=== PATIENT | female | born 1955 | race Caucasian/White ===

== ENCOUNTER 2019-04-24 05:38 | Day surgery (SDC) ==
--- NOTE | 2019-04-18 17:27 | EKG Report ---
Test Performed on : 04/18/2019 5:16:55 PM Test Reason : PAT Blood Pressure : / mmHG Vent. Rate : 104 BPM Atrial Rate : 104 BPM P-R Int : 156 ms QRS Dur : 094 ms QT Int : 338 ms P-R-T Axes : 068 041 061 degrees QTc Int : 444 ms Sinus tachycardia. Otherwise normal ECG No previous ECGs available Confirmed by Fabiola Martin MD ([id number]) on 04/18/2019 6:26:50 PM
[2019-04-18 17:32] LABS: BASO# 0.04 X1000 (0.0-0.2); BASO% 0.5 % (0.0-0.8); EOS% 1.2 % (0.0-10.0); HEMATOCRIT 43.6 % (37.0-47.0); HEMOGLOBIN 13.9 g/dL (12.0-16.0); IMM GRAN# 0.02 X1000 (0.0-0.04); IMM GRAN% 0.2 % (0.0-0.5); LYMPH# 1.98 X1000 (1.2-3.4); LYMPH% 23.2 % (20.5-51.1); MCH 30.3 PG (27-31); MCHC 31.9 g/dL (33-37); MCV 95.2 FL (81-99); MONO# 0.49 X1000 (0.11-0.59); MONO% 5.7 % (1.7-9.3); MPV 11.1 FL (7.4-10.4); NEUT% 69.2 % (42.2-75.2); PLT 215 X1000 (130-400); RBC 4.58 XMIL (4.2-5.4); RDW 13.1 % (11.5-14.5); URINE SOURCE CLEAN CATCH; WBC 8.53 X1000 (4.8-10.8)
[2019-04-18 17:36] LABS: BILIRUBIN URINE NEGATIVE (NEGATIVE); BLOOD URINE NEGATIVE (NEGATIVE); COLOR YELLOW; GLUCOSE URINE NEGATIVE (NEGATIVE); KETONE URINE TRACE mg/dL (NEGATIVE); LEUKOCYTES URINE LARGE (NEGATIVE); NITRITE URINE NEGATIVE (NEGATIVE); PROTEIN URINE NEGATIVE (NEGATIVE); TURBIDITY URINE HAZY (CLEAR); UROBILINOGEN URINE NORMAL (NORMAL)
[2019-04-18 17:38] LABS: UR EPITHELIAL CELLS <10 /HPF (<10); URINE RBC <10 /HPF (<10); URINE WBC TNTC /HPF (<10)
[2019-04-18 17:45] LABS: URINE BACTERIA 3+ /HPF
[2019-04-18 17:46] LABS: INR 0.96; PROTIME 12.9 Seconds (11.0-16.0); PTT 33.3 Seconds (22.3-41.8)
[2019-04-18 18:06] LABS: AGAP 13; ALBUMIN 4.3 g/dL (3.5-5.0); BUN 16 mg/dL (8-22); CALCIUM 10.1 mg/dL (8.8-10.2); CHLORIDE 102 mmol/L (98-107); COSMO 284; CREATININE 0.8 mg/dL (0.5-0.9); ESTIMATED GFR > 60; GLUCOSE 118 mg/dL (70-104); POTASSIUM 3.8 mmol/L (3.5-5.1); SODIUM 141 mmol/L (136-145); TCO2 26 mmol/L (25-35)
[2019-04-18 18:16] LABS: HEMOGLOBIN A1C 5.1 % (4.8-6.0)
[2019-04-24] MEDS ORDERED: REGLAN ONE (06:19)
[2019-04-24] MEDS ORDERED: PEPCID ONE (06:19)
[2019-04-24] MEDS ORDERED: COLACE ONE (06:19)
[2019-04-24] MEDS ORDERED: KEFZOL 1 GM/D5W 2 GM/100 ML IVPB ONE (06:20)
[2019-04-24] MEDS ORDERED: LYRICA ONE (06:20)
[2019-04-24] MEDS ORDERED: LR 1,000 ML ONE (06:20)
[2019-04-24] MEDS ORDERED: CELEBREX ONE (06:20)
[2019-04-24] MEDS ORDERED: DIPRIVAN 1% ONE (07:46)
[2019-04-24] MEDS ORDERED: VANCOMYCIN ONE (08:04)
[2019-04-24] MEDS ORDERED: DURAMORPH ONE (08:04)
[2019-04-24] MEDS ORDERED: TORADOL ONE (08:04)
[2019-04-24] MEDS ORDERED: SENSORCAINE-MPF 0.5%/EPI 1:200,000 ONE (08:04)
[2019-04-24] MEDS ORDERED: SODIUM CHLORIDE 0.9% ONE (08:05)
[2019-04-24] MEDS ORDERED: CYKLOKAPRON 1,000 MG/NS 1,000 MG/100 ML IVPB ONE ×2 (08:05→08:53)
[2019-04-24] MEDS ORDERED: EXPAREL 1.3% ONE (08:05)
[2019-04-24] MEDS ORDERED: NEOSPORIN G.U. IRRIGANT ONE (08:08)
[2019-04-24] MEDS ORDERED: FENTANYL ONE (08:46)
[2019-04-24] MEDS ORDERED: DECADRON ONE (09:18)
[2019-04-24] MEDS ORDERED: OFIRMEV 1000 MG/ISOTONIC SOLN 1,000 MG/100 ML BOTTLE ONE (09:18)
[2019-04-24] MEDS ORDERED: ZOFRAN ONE (09:18)
[2019-04-24 09:42] LABS: URINE SOURCE CATH
[2019-04-24 10:13] LABS: BILIRUBIN URINE NEGATIVE (NEGATIVE); BLOOD URINE NEGATIVE (NEGATIVE); COLOR YELLOW; GLUCOSE URINE NEGATIVE (NEGATIVE); KETONE URINE NEGATIVE (NEGATIVE); LEUKOCYTES URINE NEGATIVE (NEGATIVE); NITRITE URINE NEGATIVE (NEGATIVE); PH URINE 5.5; PROTEIN URINE TRACE mg/dL (NEGATIVE); SP GRAVITY URINE 1.023; TURBIDITY URINE CLEAR (CLEAR); UROBILINOGEN URINE NORMAL (NORMAL)
[2019-04-24 10:15] LABS: UR EPITHELIAL CELLS <10 /HPF (<10); URINE BACTERIA NEGATIVE /HPF; URINE RBC <10 /HPF (<10); URINE WBC <10 /HPF (<10)
[2019-04-24] MEDS ORDERED: NS 1,000 ML ONE (10:53)
[2019-04-24] MEDS ORDERED: MORPHINE IV PRN ×3 (11:15)
[2019-04-24] MEDS ORDERED: ZOFRAN IV PRN (11:15)
[2019-04-24] MEDS ORDERED: ZOFRAN ODT PO PRN (11:15)
[2019-04-24] MEDS ORDERED: OXY IR PO PRN (11:15)
--- NOTE | 2019-04-24 11:18 | Diag Imaging Result Doc PS360 ---
EXAM: KNEE 1-2 VIEWS-LEFT HISTORY: post op TECHNIQUE: Two views COMPARISON: 10/18/2013 FINDINGS: There has been orthopedic replacement of the knee. There are anterior skin ines and a Ashlyn surgical drain. No fracture. No dislocation. IMPRESSION: Good alignment to the femoral and tibial components of the recently replaced left knee. Electronically signed by Spencer Buckley 04/24/2019 11:16 AM
[2019-04-24] MEDS: NS 1,000 ML IV SCH ×2 (11:40→22:14)
[2019-04-24] MEDS: ULTRAM PO SCH ×3 (11:57→22:14)
[2019-04-24] MEDS: OXY IR PO PRN (13:41)
--- NOTE | 2019-04-24 14:09 | OPERATIVE NOTE ---
PROCEDURE DATE: 04/24/2019 PREOPERATIVE DIAGNOSIS: Degenerative joint disease, left knee. POSTOPERATIVE DIAGNOSIS: Degenerative joint disease left knee. PROCEDURE: Left total knee replacement. SURGEON: Rosio Vazquez MD. FLOUR INSPECTOR: Madeline Zazueta. Ms. Zazueta was necessary for proper retraction and manipulation during the case. ANESTHESIA: Spinal. COMPLICATION: None. PROCEDURE IN DETAIL: This 64-year-old female presents for left total knee replacement. Risks, benefits, and no guarantees were discussed and she is willing to proceed. She was taken to the operating room and satisfactory anesthesia obtained. The left knee was prepped and draped in usual sterile fashion. A time-out was taken to confirm operative site, procedure, and patient. The leg was wrapped with an Esmarch after prep and drape. Tourniquet was inflated to 350 mmHg. A midline incision was made followed by a quad tendon sparing arthrotomy. The patella was everted and resurfaced with freehand technique and subluxed laterally. With the knee flexed an intramedullary hole was made in the distal femur and distal femur cutting block secured in 5 degrees of valgus. The distal femoral resection was made at 11 mm to accommodate for flexion contracture. Distal femur was sized to a size 6 DePuy Attune femoral implant. The 4 in 1 block was attached and the posterior, anterior and chamfer cuts sequentially made. A notch was created for posterior stabilized design using provided notch guide. The femur was then reflected posteriorly with the knee flexed to expose the proximal tibia. Tibial cutting block was secured with extramedullary alignment and the tibial resection made. Flexion and extension gaps were equal after release of the popliteus tendon with a 10 mm spacer block. Tibia was sized to a size 6 tibial tray. A trial reduction was performed with a 6 tibial tray, a 10 mm thick poly and a 6 femoral component with good range of motion and stability. The patella was sized to a 35 medialized dome patella. Midline patellar tracking was noted. The drill holes were placed for the femoral and patellar implants, and the trial components removed. The bony surfaces were irrigated with pulsatile lavage with irrigant and then dried. Cement with a gram of vancomycin was utilized to cement a DePuy size 6 rotating platform tibial base plate, a size 6 left posterior stabilized femoral component and a 35 medialized dome patella. Excess cement was removed with a Duvall elevator. While the cement cured, the joint capsule was injected with Exparel and a Hemovac drain placed. After curing the cement, a 10 mm thick size 6 posterior stabilized poly bearing was inserted into the tibial tray and the knee reduced. Final range of motion was 0 to 120 degrees with midline patellar tracking and good soft tissue balance. The arthrotomy was copiously irrigated and closed over the drain with #1 Vicryl in the arthrotomy, 2-0 Vicryl in the subcutaneous and skin ines on the skin edges. Sterile dressings completed the closure and the patient was recovered from anesthesia and transferred to recovery room in stable condition. Tourniquet was released with good return of capillary blood flow. No intraoperative complications were noted. Instrument count and sponge count was correct at the time of closure. cc: Viet Vazquez MD
--- NOTE | 2019-04-24 14:28 | ORTHOPAEDICS PROGRESS NOTE ---
DATE: 04/24/2019 SUBJECTIVE: Ms. Womack is seen status post knee replacement. OBJECTIVE: At the present time, she is afebrile with stable vital signs. Her bandage is clean and dry. She is resting comfortably. PLAN: We will plan on mobilizing her later today. She can be transferred home when she is mobilizing well. cc: Viet Vazquez MD
[2019-04-24] MEDS: KEFZOL 2 GM/D5W 2 GM/50 ML IVPB IV SCH (16:12)
[2019-04-24] MEDS: TYLENOL PO SCH ×2 (16:12→22:14)
[2019-04-24] MEDS: PERIDEX MT SCH (22:14)
[2019-04-24] MEDS: DOXYCYCLINE PO SCH (22:15)
[2019-04-24] MEDS: CELEBREX PO SCH (22:15)
[2019-04-24] MEDS: COLACE PO SCH (22:15)
[2019-04-24] MEDS: APRESOLINE PO SCH (22:15)
[2019-04-25] MEDS: OXY IR PO PRN ×2 (01:09→08:11)
[2019-04-25] MEDS: KEFZOL 2 GM/D5W 2 GM/50 ML IVPB IV SCH (01:09)
[2019-04-25] MEDS: ULTRAM PO SCH ×2 (04:52→10:44)
[2019-04-25] MEDS: TYLENOL PO SCH ×2 (04:53→10:43)
[2019-04-25 06:59] LABS: HEMOGLOBIN 10.3 g/dL (12.0-16.0)
[2019-04-25] MEDS: NS 1,000 ML IV SCH (07:07)
[2019-04-25 08:06] LABS: AGAP 12; BUN 17 mg/dL (8-22); CALCIUM 7.7 mg/dL (8.8-10.2); CHLORIDE 96 mmol/L (98-107); COSMO 270; CREATININE 0.7 mg/dL (0.5-0.9); ESTIMATED GFR > 60; GLUCOSE 127 mg/dL (70-104); SODIUM 133 mmol/L (136-145); TCO2 25 mmol/L (25-35)
[2019-04-25] MEDS: COLACE PO SCH (08:09)
[2019-04-25] MEDS: DOXYCYCLINE PO SCH (08:09)
[2019-04-25] MEDS: APRESOLINE PO SCH (08:09)
[2019-04-25] MEDS: PERIDEX MT SCH (08:10)
[2019-04-25] MEDS: CELEBREX PO SCH (08:10)
--- NOTE | 2019-04-25 08:28 | ORTHOPAEDICS PROGRESS NOTE ---
DATE: 04/25/2019 SUBJECTIVE DATA: Ms. Womack is seen postop day 1 for left total knee arthroplasty. She reports she is doing well. She states her pain is about a 3/10 at this time. She denies nausea, vomiting, or any other symptoms at this time. OBJECTIVE DATA: Has good sensation left lower extremity. There are good pedal pulses. There is negative Homans sign. Her bandages are clean and dry. There is no evidence of drainage. ASSESSMENT: Degenerative joint disease, left total knee arthroplasty. PLAN: We plan to let Ms. Womack go home today. She will go to outpatient therapy right away. She will need to follow up with Dr. Vazquez in roughly 10 days for a recheck and staple removal. We will go ahead and write her prescriptions for [place] 10 for pain, as well as Phenergan for nausea and aspirin for DVT prophylaxis. I placed her on Bactrim DS for infection prevention. We will see her back in clinic when she comes in. Dictated by ANGELIA Conde for Viet Vazquez MD cc: ANGELIA Conde MD
[2019-04-25] MEDS ORDERED: ASPIRIN PO SCH (09:00)
[2019-04-25] MEDS ORDERED: ALDACTONE PO SCH (09:00)
[2019-04-25] MEDS ORDERED: PEPCID PO SCH (09:00)
[2019-04-25] MEDS ORDERED: BENICAR PO SCH (09:00)
[2019-04-25 11:09] VITALS: BP 130/63
== END 2019-04-25 12:01 | disposition home or self-care (01) ==
LOC: 4N 05:38 → OR 05:38
PROVIDERS: ATTEND Orthopaedic Surgery Adult Reconstructive Orthopaedic Surgery